=== PATIENT | male | born 1950 | race Caucasian/White ===

== ENCOUNTER 2017-05-03 06:05 | Emergency (ER) | payer OTHER, BC ==
[~2017-05-03] VITALS: Ht 180.3 cm; Wt 86.2 kg
--- NOTE | ~2017-05-03 | EKG ---
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 : 1950 Requested By: Mohinder Mahan Order Number: [id number] MD: Jorge L Teran Measurements Intervals [place] Rate: 73 P: 67 [place]: 134 QRS: -46 QRSD: 101 T: QT: 430 QTc: 474 Interpretive Statements Sinus rhythm Ventricular trigeminy LAD, consider left anterior fascicular block Borderline low voltage, extremity leads No previous ECG available for comparison Electronically Signed On 05-03-2017 8:04:11 CDT by Jorge L Teran [email or web address] <ELECTRONICALLY SIGNED> By: Jorge L Teran MD, [facility] 05/03/17 0804 0731 0 Jorge L Teran MD, FACC /EPI
[2017-05-03] MEDS ORDERED: REMERON15 MG PO (06:20)
[2017-05-03] MEDS ORDERED: ASPIR 8181 MG (06:21)
[2017-05-03] MEDS ORDERED: FISH OIL 1,001000 M2 PO (06:21)
[2017-05-03] MEDS ORDERED: PRAVACHOL20 MG PO (06:21)
[2017-05-03] MEDS ORDERED: CO Q-10100 MG PO (06:22)
[2017-05-03 06:43] LABS: HEMATOCRIT 53.4 % (42.0-52.0); HEMOGLOBIN 18.1 gm/dL (14.0-18.0); MCH 30.2 pg (26.0-34.0); MCV 88.9 fL (80.0-100.0); RDW 13.4 % (10.5-14.5); WBC 7.9 thou/uL (4.0-11.0)
[2017-05-03 06:54] LABS: ANION GAP 9 mmol/L (7-16); BUN 19 mg/dL (7-18); CALCIUM 8.9 mg/dL (8.5-10.1); CHLORIDE 107 mmol/L (98-107); CO2 26 mmol/L (21-32); GLUCOSE 133 mg/dL (74-106); POTASSIUM 3.8 mmol/L (3.5-5.1); SODIUM 142 mmol/L (136-145)
[2017-05-03 07:03] LABS: TROPONIN-I < 0.04 ng/mL (<0.04-0.07)
[2017-05-03] MEDS ORDERED: ZOFRAN ODT4 M1 PO (07:18)
[2017-05-03] MEDS ORDERED: ANTIVERT25 MG PO (07:18)
[2017-05-03 09:05] VITALS: BP 116/71
== END 2017-05-03 09:06 | disposition home or self-care (01) ==
LOC: ER 06:05
PROVIDERS: Emergency Medicine
DX: R42 Dizziness and giddiness (principal); F32.9 Major depressive disorder, single episode, unspecified; E78.00 Pure hypercholesterolemia, unspecified; F10.99 Alcohol use, unspecified with unspecified alcohol-induced disorder; Z98.890 Other specified postprocedural states; Z88.1 Allergy status to other antibiotic agents; Z88.5 Allergy status to narcotic agent; Z88.6 Allergy status to analgesic agent

== ENCOUNTER 2017-05-06 16:56 | Inpatient (IN) | payer OTHER, BC ==
[~2017-05-06] VITALS: Ht 180.3 cm; Wt 86.2 kg
--- NOTE | ~2017-05-06 | EKG ---
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 : 1950 Requested By: Bre Prajapati Order Number: [id number] MD: Jorge L Teran Measurements Intervals [place] Rate: 73 P: 64 NV: 134 QRS: -54 QRSD: 89 T: 46 QT: 412 QTc: 454 Interpretive Statements Sinus rhythm Probable left atrial enlargement Inferior infarct, old Compared to ECG 05/03/2017 07:31:18 Ventricular premature complex(es) no longer present Electronically Signed On 05-07-2017 13:51:53 CDT by Jorge L Teran [email or web address] <ELECTRONICALLY SIGNED> By: Jorge L Teran MD, [facility] 05/07/17 1351 1704 1704 Jorge L Teran MD, [facility] /EPI
[~2017-05-06 16:56] MED LIST: ANTIVERT25 MG PO; ASPIR 8181 MG; CO Q-10100 MG PO; FISH OIL 1,001000 M2 PO; PRAVACHOL20 MG PO; REMERON15 MG PO; ZOFRAN ODT4 M1 PO
[2017-05-06 17:06] VITALS: BP 126/70
[2017-05-06] MEDS ORDERED: MIRTAZAPINE45 MG PO (17:29)
[2017-05-06] MEDS ORDERED: PRAVASTATIN SOD10 MG PO (17:29)
[2017-05-06 17:45] LABS: ABSOLUTE NEUTROPHILS 5.3 thou/uL (1.4-8.2); BASOPHILS 0.5 % (0.0-2.0); HEMATOCRIT 55.4 % (42.0-52.0); HEMOGLOBIN 18.9 gm/dL (14.0-18.0); LYMPHOCYTES 23.1 % (24.0-44.0); MCH 30.4 pg (26.0-34.0); MCHC 34.1 g/dL (28.0-37.0); MCV 89.1 fL (80.0-100.0); MONOCYTES 11.8 % (1.0-8.0); PLATELET COUNT 225 thou/uL (150-400); POLYS 63.6 % (36.0-66.0); RBC 6.22 mil/uL (4.50-6.00); RDW 13.7 % (10.5-14.5); URINE BILIRUBIN NEGATIVE (Negative); URINE BLOOD 1+ (Negative); URINE COLOR YELLOW; URINE GLUCOSE-RANDOM* NEGATIVE (Negative); URINE KETONES NEGATIVE (Negative); URINE NITRITE NEGATIVE (Negative); URINE PROTEIN (DIPSTICK) NEGATIVE (Negative); URINE SPECIFIC GRAVITY 1.025 (1.003-1.035); URINE UROBILINOGEN 0.2 E.U./dl (0.2-1.0); WBC 8.3 thou/uL (4.0-11.0)
[2017-05-06 17:48] LABS: MANUAL DIFF NO
[2017-05-06 17:54] LABS: ANION GAP 9 mmol/L (7-16); BACTERIA 1-9 Few /HPF (None Seen); BUN 13 mg/dL (7-18); CASTS None Seen /LPF (None Seen); CHLORIDE 106 mmol/L (98-107); CO2 26 mmol/L (21-32); CRYSTALS None Seen /LPF (None Seen); GLUCOSE 116 mg/dL (74-106); SODIUM 141 mmol/L (136-145); SQUAMOUS 0-3 Few /LPF (0-3); URINE RBC 0-2 Rare /HPF (0-2); URINE WBC 0-5 Rare /HPF (0-5)
[2017-05-06 18:02] LABS: ALBUMIN 3.8 g/dL (3.4-5.0); ALKALINE PHOSPHATASE 64 U/L (46-116); SGOT 16 U/L (15-37); SGPT 28 U/L (30-65); TOTAL BILIRUBIN 0.7 mg/dL (<0.1-1.0); TROPONIN-I < 0.04 ng/mL (<0.04-0.07)
[2017-05-06 18:24] VITALS: BP 128/69
[2017-05-06] MEDS ORDERED: VITAMIN D1000 UNI1 PO (19:00)
[2017-05-06 19:09] VITALS: BP 114/69
[2017-05-07 04:19] VITALS: BP 118/74
[2017-05-07 07:23] VITALS: BP 119/79
[2017-05-07 16:14] VITALS: BP 112/66
[2017-05-07 19:40] VITALS: BP 106/64
[2017-05-08 04:30] VITALS: BP 118/78
[2017-05-08 06:05] LABS: CHOLESTEROL 181 mg/dL (<200); HDL CHOLESTEROL 46 mg/dL (>40); LDL CHOLESTEROL 111 mg/dL (<100); SERUM ASSESSMENT Clear; TC:HDL 3.9 Ratio (Not establshd); TRIGLYCERIDE 123 mg/dL (<150); VLDL 25 mg/dL (<40)
[2017-05-08 06:31] LABS: FOLIC ACID 11.1 ng/mL (8.6-58.9); TSH 3.901 uIU/mL (0.358-3.740)
[2017-05-08 08:00] VITALS: BP 121/66
[2017-05-08 12:59] VITALS: BP 121/66
[2017-05-08 14:59] VITALS: BP 121/66
[2017-05-09 00:10] LABS: GLYCOHEMOGLOBIN (HGB A1C) 5.3 % (4.8-5.6)
[2017-05-10 13:09] LABS: ALPHA TOCOPHEROL 10.4 mg/L (5.3-17.5)
== END 2017-05-08 14:00 | disposition home or self-care (01) | DRG 90 ==
LOC: ER 16:56 → EROBS 18:11 → 4S 18:11
PROVIDERS: Physician Assistant; Psychiatry & Neurology Neurology
DX: S06.0X9A Concussion with loss of consciousness of unspecified duration, initial encounter (principal); F32.9 Major depressive disorder, single episode, unspecified; E78.00 Pure hypercholesterolemia, unspecified; E78.5 Hyperlipidemia, unspecified; D18.1 Lymphangioma, any site; S06.2X9A Diffuse traumatic brain injury with loss of consciousness of unspecified duration, initial encounter; X58.XXXA Exposure to other specified factors, initial encounter; Z87.81 Personal history of (healed) traumatic fracture; Z79.899 Other long term (current) drug therapy; Z88.6 Allergy status to analgesic agent; Z88.8 Allergy status to other drugs, medicaments and biological substances; Y93.89 Activity, other specified; Y92.89 Other specified places as the place of occurrence of the external cause; Y99.8 Other external cause status
CPT/HCPCS: 10195

== ENCOUNTER → 2020-08-11 | Emergency (ER) | payer OTHER, BC ==
[~2020-08-11] VITALS: Ht 180.3 cm; Wt 93.0 kg
[~2020-08-11] MED LIST changes: +MIRTAZAPINE45 MG PO; +PRAVASTATIN SOD10 MG PO; +VITAMIN D1000 UNI1 PO
[2020-08-11 22:20] VITALS: BP 135/84
== END ==
LOC: ER 22:01
DX: R22.42 Localized swelling, mass and lump, left lower limb (principal); Z53.21 Procedure and treatment not carried out due to patient leaving prior to being seen by health care provider